=== PATIENT | male | born 1940 | race Caucasian/White ===

== ENCOUNTER → 2019-10-12 | Outpatient (CLI) | payer MEDICARE, BC | END | disposition home or self-care (01) | LOC: CFH 14:56 | PROVIDERS: ATTEND Nurse Practitioner | DX: J61 Pneumoconiosis due to asbestos and other mineral fibers (principal) | CPT/HCPCS: 71250 ==

== ENCOUNTER 2020-01-14 19:27 | Emergency (ER) | payer MEDICARE, BC ==
[~2020-01-14] VITALS: Ht 170.2 cm; Wt 86.1 kg
--- NOTE | 2020-01-14 20:12 | NUR ---
PT ASSISTED INTO GOWN AND PLACED ON ALL ROOM MONITORING. BBB AND BIGEMINY SEEN ON MONITOR. EKG COMPLETED IN TRIAGE. PT DENIES ANY SX AT THIS TIME. STATES HE FELT HEART RACING ONE TIME. LATER TOOK PULSE AT HOME WITH READING IN 40S WITH QUICK RETURN TO 70S. CALL LIGHT WITHIN REACH, FAMILY AT BS.
--- NOTE | 2020-01-14 21:10 | NUR ---
REPORT TO MAHNAZ AMOS, TRANSFER OF CARE AT THIS TIME.
[2020-01-14 21:16] LABS: BASOPHILS # (AUTO) 0.03 x10^3/uL (0-0.1); BASOPHILS % (AUTO) 1 % (0-1); EOSINOPHILS % (AUTO) 7 % (1-7); LYMPHOCYTES # (AUTO) 1.87 x10^3/uL (1-3.4); LYMPHOCYTES % (AUTO) 33 % (22-44); MD NO; MEAN CORPUSCULAR HEMOGLOBIN 32.2 pg (27.5-34.5); MEAN CORPUSCULAR VOLUME 94.5 fL (81-97); MEAN PLATELET VOLUME 7.9 fL (7.4-10.4); MONOCYTES # (AUTO) 0.82 x10^3/uL (0.2-0.8); MONOCYTES % (AUTO) 15 % (2-9); NEUTROPHILS # (AUTO) 2.49 x10^3/uL (1.8-6.8); NEUTROPHILS % (AUTO) 45 % (42-75); PLATELET COUNT 196 x10^3/uL (130-400); RED BLOOD COUNT 4.85 x10^6/uL (4.38-5.82)
--- NOTE | 2020-01-14 21:21 | NUR ---
Pt alert and resting on gurney. Pt reports he feels "fine". VSS. Pt aware of wait for labs and xray. Call light within reach.
[2020-01-14 21:26] LABS: ALANINE AMINOTRANSFERASE 47 U/L (12-78); ALBUMIN 3.8 g/dL (3.4-5.0); ANION GAP 7 mmol/L (5-15); CALCIUM 8.6 mg/dL (8.5-10.1); CHLORIDE 109 mmol/L (98-107); CREATININE 0.76 mg/dL (0.7-1.3)
[2020-01-14 21:30] LABS: ALKALINE PHOSPHATASE 111 U/L (45-117); BILIRUBIN,TOTAL 0.9 mg/dL (0.2-1.0); TOTAL PROTEIN 7.6 g/dL (6.4-8.2); TROPONIN I < 0.015 ng/mL (0.000-0.045)
--- NOTE | 2020-01-14 22:56 | NUR ---
Pt ambulatory to restroom. Pt thanked for patience. Aware chart is up for re-eval.
--- NOTE | 2020-01-14 23:24 | NUR ---
ERP at bedside.
[2020-01-14 23:31] VITALS: BP 123/81
--- NOTE | 2020-01-14 23:48 | NUR ---
Pt d/c'd to home care. Pt alert, oriented and ambulatory. NAD. Pt educated on home care and follow-up. Pt VU. Pt ambulated out of ER.
== END 2020-01-14 23:50 | disposition home or self-care (01) ==
LOC: ED 23:44
DX: I49.3 Ventricular premature depolarization (principal); T50.995A Adverse effect of other drugs, medicaments and biological substances, initial encounter; I45.10 Unspecified right bundle-branch block; R07.9 Chest pain, unspecified; I10 Essential (primary) hypertension; Y92.89 Other specified places as the place of occurrence of the external cause
CPT/HCPCS: 36415; 71045; 80053; 83880; 84484; 85025; 93005; 99285

== ENCOUNTER 2020-05-30 13:17 | Outpatient (CLI) | payer MEDICARE, BC | END 2020-05-30 23:59 | disposition home or self-care (01) | LOC: WOUND 13:17 | PROVIDERS: ATTEND Nurse Practitioner Family | DX: L24.5 Irritant contact dermatitis due to other chemical products (principal); L51.1 Stevens-Johnson syndrome; R21 Rash and other nonspecific skin eruption; L97.821 Non-pressure chronic ulcer of other part of left lower leg limited to breakdown of skin; L97.811 Non-pressure chronic ulcer of other part of right lower leg limited to breakdown of skin; L97.511 Non-pressure chronic ulcer of other part of right foot limited to breakdown of skin | CPT/HCPCS: 97597; 97598; G0463 ==

== ENCOUNTER 2020-06-06 13:09 | Outpatient (CLI) | payer MEDICARE, BC | END 2020-06-06 23:59 | disposition home or self-care (01) | LOC: WOUND 13:09 | PROVIDERS: ATTEND Nurse Practitioner Family | DX: L24.5 Irritant contact dermatitis due to other chemical products (principal); L51.1 Stevens-Johnson syndrome; R21 Rash and other nonspecific skin eruption; L97.821 Non-pressure chronic ulcer of other part of left lower leg limited to breakdown of skin; L97.811 Non-pressure chronic ulcer of other part of right lower leg limited to breakdown of skin; L97.511 Non-pressure chronic ulcer of other part of right foot limited to breakdown of skin | CPT/HCPCS: 97597; 97598; G0463 ==